=== PATIENT | female | born 1970 ===

== ENCOUNTER 2016-07-01 15:18 | Emergency (ER) | payer SELFPAY ==
[2016-07-01 15:18] VITALS: BMI 47.1
[2016-07-01 15:22] VITALS: BP 130/82; TEMP 98
--- NOTE | 2016-07-01 16:38 | C.PDOC ---
History Of Present Illness 46 y/o female with htn c/o left ear pain with itching x 2-3 days that got worse today, with pain radiating to side of face. no fevers or chills. no dental pain. no recent swimming., pt has not put anything into ears. c/o mild headache to left side of face. denies any discharge from left ear. pt took some tylenol with mild relief. Time Seen by Provider: 07/01/16 15:32 Chief Complaint (Nursing): ENT Problem Past Medical History Reviewed: Historical Data, Nursing Documentation, Vital Signs Vital Signs: Last Vital Signs Temp 98 F 07/01/16 15:21 Pulse 65 07/01/16 17:03 Resp 18 07/01/16 17:03 BP 130/82 07/01/16 15:21 Pulse Ox 98 07/01/16 17:03 - Medical History PMH: Gastritis, HTN, Migraine Denies: Chronic Kidney Disease Surgical History: Cholecystectomy - [facility] Procedures ENDOSC RETROGRADE CHOLANGIOPANCREATOGRAPHY [ERCP] (06/18/13) ENDOSCOP INSERTION OF STENT (TUBE) INTO BILE DUCT (06/18/13) ENDOSCOPIC REMOVAL OF STONE(S) FROM BILIARY TRACT (08/29/13) ENDOSCOPIC SPHINCTEROTOMY AND PAPILLOTOMY (08/29/13) INJECT/INFUSE NEC (06/04/14) INTRAOPER CHOLANGIOGRAM (06/30/13) LAPAROSCOPIC CHOLECYSTECTOMY (06/30/13) LOCAL EXCIS BREAST LES (04/09/14) OTHER ENDOSCOPY OF SM INTEST (08/29/13) OTHER LOCAL DESTRUC SKIN (10/14/13) PERCUTAN NEEDLE BIOPSY OF BREAST (11/20/13) REMOV BILIARY/LIVER TUBE (08/29/13) Family History: States: Unknown Family Hx - Social History Hx Tobacco Use: No Hx Alcohol Use: No Hx Substance Use: No - Immunization History Hx Tetanus Toxoid Vaccination: No Hx Influenza Vaccination: No Hx Pneumococcal Vaccination: No Review Of Systems Constitutional: Negative for: Fever, Chills Eyes: Negative for: Pain, Vision Change ENT: Positive for: Ear Pain. Negative for: Ear Discharge, Nose Pain, Nose Discharge, Mouth Pain, Throat Pain Respiratory: Negative for: Cough Gastrointestinal: Negative for: Nausea, Vomiting, Abdominal Pain Genitourinary: Negative for: Dysuria Musculoskeletal: Negative for: Neck Pain Skin: Negative for: Rash Physical Exam - Physical Exam Appears: Non-toxic, Other (appears uncomfortable) Skin: Normal Color, Warm, Dry Head: Atraumatic, Normacephalic Eye(s): bilateral: Normal Inspection Ear(s): Left: Other (tender to tragus. ecanal with erythema, no debris noted, tm intact- not erythematous, no mastoid tenderness), Right: Normal Nose: Normal Oral Mucosa: Moist ( ) Teeth: Normal Dentition Gingiva: Normal Appearing Neck: Normal ROM Cardiovascular: Rhythm Regular, No Murmur Respiratory: Normal Breath Sounds, No Rales, No Rhonchi, No Wheezing Gastrointestinal/Abdominal: Soft, No Tenderness ED Course And Treatment O2 Sat by Pulse Oximetry: 99 Medical Decision Making Medical Decision Makin46 y/o femal ewith left ear pain. erythematous canal on exam, will treat with analgesic and antibiotic ear drops with pmd f/u Disposition Counseled Patient/Family Regarding: Diagnosis, Need For Followup, Rx Given - Disposition Referrals: Valerie Perera MD [Staff Provider] - Disposition: HOME/ ROUTINE Disposition Time: 16:42 Condition: STABLE Additional Instructions: Use gotas para los odos segn lo prescrito. Osvaldo Tylenol o Motrin para el dolor. Seguimiento con el Dr. Perera en unos dejesus. Prescriptions: Neomycin/Polymyxin/Hydrocortis [Cortisporin Otic Susp] 4 drop QID #1 bottle Instructions: Otitis Externa (ED) Print Language: TONGAN - Clinical Impression Clinical Impression: Otitis externa
[2016-07-01 17:05] VITALS: PULSE 65; RESP 18
[2016-07-01 23:02] VITALS: O2SAT 99
== END 2016-07-01 17:04 | disposition home or self-care (01) ==
LOC: C.ER 15:18
DX: H60.92 Unspecified otitis externa, left ear (principal)

== ENCOUNTER 2016-07-17 01:39 | Emergency (ER) | payer SELFPAY ==
[2016-07-17 01:39] VITALS: BMI 47.1
--- NOTE | 2016-07-17 02:36 | C.PDOC ---
History Of Present Illness 46 y/o female presents to ED with complaint of digitally and positionally reproducible chest discomfort. Patient reports lifting small, heavy objects. Denies falls or truama. No SOB, nausea, arm pain, diaphoresis, or rash. Time Seen by Provider: 07/17/16 02:29 Chief Complaint (Nursing): Chest Pain History Per: Patient History/Exam Limitations: no limitations Onset/Duration Of Symptoms: Days Current Symptoms Are (Timing): Still Present Quality: "Pain" Associated Symptoms: denies: Dyspnea, Diaphoresis Exacerbating Factors: Movement Recent travel outside of the [place]: No Past Medical History Reviewed: Historical Data, Nursing Documentation, Vital Signs Vital Signs: Last Vital Signs Temp 98.1 F 07/17/16 03:00 Pulse 73 07/17/16 03:00 Resp 16 07/17/16 03:00 BP 122/74 07/17/16 03:00 Pulse Ox 96 07/17/16 03:00 - Medical History PMH: Gastritis, HTN, Migraine Surgical History: Cholecystectomy - [facility] Procedures ENDOSC RETROGRADE CHOLANGIOPANCREATOGRAPHY [ERCP] (06/18/13) ENDOSCOP INSERTION OF STENT (TUBE) INTO BILE DUCT (06/18/13) ENDOSCOPIC REMOVAL OF STONE(S) FROM BILIARY TRACT (08/29/13) ENDOSCOPIC SPHINCTEROTOMY AND PAPILLOTOMY (08/29/13) INJECT/INFUSE NEC (06/04/14) INTRAOPER CHOLANGIOGRAM (06/30/13) LAPAROSCOPIC CHOLECYSTECTOMY (06/30/13) LOCAL EXCIS BREAST LES (04/09/14) OTHER ENDOSCOPY OF SM INTEST (08/29/13) OTHER LOCAL DESTRUC SKIN (10/14/13) PERCUTAN NEEDLE BIOPSY OF BREAST (11/20/13) REMOV BILIARY/LIVER TUBE (08/29/13) Family History: States: Unknown Family Hx - Social History Hx Tobacco Use: No Hx Alcohol Use: No Hx Substance Use: No - Immunization History Hx Tetanus Toxoid Vaccination: No Hx Influenza Vaccination: No Hx Pneumococcal Vaccination: No Review Of Systems Except As Marked, All Systems Reviewed And Found Negative. Constitutional: Negative for: Fever, Chills Cardiovascular: Negative for: Palpitations Respiratory: Negative for: Cough, Shortness of Breath Gastrointestinal: Negative for: Nausea, Vomiting Musculoskeletal: Positive for: Other (chest wall pain ). Negative for: Arm Pain Skin: Negative for: Rash Physical Exam - Physical Exam Appears: Non-toxic, No Acute Distress, Other (mobridly obese ) Skin: Normal Color, Warm, Dry, No Rash Head: Atraumatic, Normacephalic Oral Mucosa: Moist Chest: Symmetrical, Tenderness (digitally reproducible upper sternal ) Cardiovascular: Rhythm Regular, No Murmur Respiratory: Normal Breath Sounds, No Rales, No Rhonchi, No Wheezing Gastrointestinal/Abdominal: Soft, No Tenderness Extremity: Normal ROM, Capillary Refill (< 2 sec. ) Neurological/Psych: Oriented x3, Normal Speech, Normal Cognition ED Course And Treatment ECG: Interpreted By Me ECG Rhythm: Sinus Rhythm ECG Interpretation: Normal Rate From EC O2 Sat by Pulse Oximetry: 98 Pulse Ox Interpretation: Normal Progress Note: Treated with Motrin. On reassessment, patient is resting comfortably, and is in no acute distress. Patient instructed to follow up with clinic/PMD within 1-2 days. Medical Decision Making Medical Decision Making: digitally and positionally reproducible upper sternal discomfort with normal EKG , c/w Costochondritis. Disposition Doctor Will See Patient In The: Office Counseled Patient/Family Regarding: Studies Performed, Diagnosis - Disposition Referrals: [facility] at [facility] [Outside] Disposition: HOME/ ROUTINE Disposition Time: 02:36 Condition: GOOD Additional Instructions: ibuprofeno 400-600 mg cada 6 horas, nada caliente [place] encima 1/2 hora por hora. No levanta nada pesada por 1 semana. Sigue en [facility]. Instructions: Costochondritis (ED) Print Language: ROMANSH - Clinical Impression Clinical Impression: Chest discomfort - Scribe Statement The provider has reviewed the documentation as recorded by the Kailashibluda Daniel Provider Scribe Attestation: All medical record entries made by the Scribe were at my direction and personally dictated by me. I have reviewed the chart and agree that the record accurately reflects my personal performance of the history, physical exam, medical decision making, and the department course for this patient. I have also personally directed, reviewed, and agree with the discharge instructions and disposition.
[2016-07-17 03:01] VITALS: BP 122/74; PULSE 73; RESP 16; TEMP 98.1
[2016-07-17 04:05] VITALS: O2SAT 98
== END 2016-07-17 03:03 | disposition home or self-care (01) ==
LOC: C.ER 01:39
DX: R07.89 Other chest pain (principal)

== ENCOUNTER 2016-08-14 09:41 | Day surgery (SDC) | payer SELFPAY ==
[2016-08-14 11:22] VITALS: BMI 47.0
[2016-08-14 11:51] VITALS: O2SAT 100
[2016-08-14 13:58] VITALS: TEMP 97.8
[2016-08-14 14:31] VITALS: BP 119/78; PULSE 60; RESP 14
== END 2016-08-14 14:15 | disposition home or self-care (01) ==
LOC: C.ENDO 09:41
PROVIDERS: ATTEND Internal Medicine Gastroenterology
DX: K22.70 Barrett's esophagus without dysplasia (principal); K21.0 Gastro-esophageal reflux disease with esophagitis; K29.50 Unspecified chronic gastritis without bleeding; K44.9 Diaphragmatic hernia without obstruction or gangrene

== ENCOUNTER 2016-10-05 08:25 | Inpatient (IN) | payer OTHER ==
[2016-10-02 08:15] VITALS: BMI 50.1
--- NOTE | 2016-10-05 10:29 | CP.PCM.HP ---
History of Present Illness - History of Present Illness History of Present Illness: 46yo female with a h/o fibroid uterus and menorhagia unresponsive to medical management, presenting here today for vaginal hysterectomy with anterior repair ith possible conversion to open hysterectomy. Present on Admission - Present on Admission Any Indicators Present on Admission: No Review of Systems - Reproductive: Female Reproductive:Female: Cycle Variable, Heavy Menses - Menstruation Menstruation: Heavy Menses Past Patient History - Infectious Disease Hx of Infectious Diseases: None - Tetanus Immunizations Tetanus Immunization: Unknown - Past Medical History & Family History Past Medical History?: Yes - Past Social History Smoking Status: Never Smoked - CARDIAC Hx Cardiac Disorders: Yes Hx Hypertension: Yes - PULMONARY Hx Respiratory Disorders: No - NEUROLOGICAL Hx Neurological Disorder: No Hx Migraine: Yes - HEENT Hx HEENT Problems: No - RENAL Hx Chronic Kidney Disease: No - ENDOCRINE/METABOLIC Hx Endocrine Disorders: No - HEMATOLOGICAL/ONCOLOGICAL Hx Blood Disorders: No - INTEGUMENTARY Hx Dermatological Problems: No - MUSCULOSKELETAL/RHEUMATOLOGICAL Hx Musculoskeletal Disorders: No - GASTROINTESTINAL Hx Gastrointestinal Disorders: Yes Hx Gastritis: Yes Hx Gastroesophageal Reflux: Yes Other/Comment: H/O BARRETTS ESOPHAGUS - GENITOURINARY/GYNECOLOGICAL Hx Genitourinary Disorders: No Hx Incontinence: Yes (STRESS) Hx Reproductive Disorders: Yes Other/Comment: UTERINE LEIOMYOMA - PSYCHIATRIC Hx Psychophysiologic Disorder: No Hx Substance Use: No - SURGICAL HISTORY Hx Surgeries: Yes Hx Cholecystectomy: Yes Hx Tubal Ligation: Yes Other/Comment: LIPOMA LEFT BREAST. LIPOMA HEAD - ANESTHESIA Hx Anesthesia: Yes Hx Anesthesia Reactions: No Hx Malignant Hyperthermia: No Has any member of the family had a problem w/ anesthesia?: (UNKNOWN) Meds Allergies/Adverse Reactions: Allergies Allergy/AdvReac Type Severity Reaction Status Date / Time No Known Allergies Allergy Verified 07/01/16 15:25 Physical Exam - Constitutional Appears: Well - Eye Exam Eye Exam: EOMI - ENT Exam ENT Exam: Normal Exam - Respiratory Exam Respiratory Exam: Clear to Auscultation Bilateral, NORMAL BREATHING PATTERN - Cardiovascular Exam Cardiovascular Exam: REGULAR RHYTHM - GI/Abdominal Exam GI & Abdominal Exam: Normal Bowel Sounds - Extremities Exam Extremities exam: Positive for: normal inspection Results - Vital Signs Recent Vital Signs: Last Vital Signs Temp 97.9 F 10/05/16 09:00 Pulse 64 10/05/16 09:00 Resp 18 10/05/16 09:00 BP 112/75 10/05/16 09:00 Pulse Ox 97 10/05/16 09:00 - Impressions Impression: Fibroid Uterus with Menorrhagia Assessment & Plan (1) Fibroid (bleeding) (uterine) Status: Acute (2) Menorrhagia Status: Acute (3) Stress incontinence in female Status: Acute - Assessment and Plan (Free Text) Plan: crew caller to the OR IV fluids Mefoxin 2gms 1 hr before incision Sequential compression devices. - Date & Time Date: 10/05/16 Time: 10:34
[2016-10-05] MEDS ORDERED: Midazolam 2 MG/2 ML VIAL ONE (10:41)
[2016-10-05] MEDS ORDERED: Propofol 10 mg/ml Inj (20 ML) ONE (10:41)
[2016-10-05] MEDS ORDERED: Lactated Ringer's 1,000 ML IV ONE ×6 (10:55→19:02)
[2016-10-05] MEDS ORDERED: Vasopressin 20 Units/ml Inj ONE (10:59)
[2016-10-05] MEDS: cefOXitin IV 2 gm in Dextrose 2 GM/50 ML BAG IVPB ONE ×2 (11:10→11:46)
[2016-10-05] MEDS ORDERED: Sodium Chloride 0.9% 120 ML IV ONE (11:18)
[2016-10-05] MEDS ORDERED: Succinylcholine Chloride 20 mg/ml Syr (5 ml) IV ONE (11:24)
[2016-10-05] MEDS ORDERED: Rocuronium 10 mg/ml (10 ml) ONE (11:24)
[2016-10-05] MEDS ORDERED: Clindamycin 2% Vaginal Cream(40 gm) ONE (12:02)
[2016-10-05] MEDS ORDERED: Neostigmine Methylsulfate 3mg/3ml Syringe IV ONE (12:52)
[2016-10-05] MEDS ORDERED: Methylene Blue 10 mg/mL(10ml) IV ONE (13:07)
[2016-10-05] MEDS ORDERED: Dextrose 5%/0.45% NS 1,000 ML IV SCH (13:45)
[2016-10-05] MEDS ORDERED: Oxycodone/Acetaminophen 5/325 mg Tab PO PRN ×3 (13:45→14:05)
--- NOTE | 2016-10-05 13:48 | PCM.SURG1 ---
Surgeon's Initial Post Op Note - Surgeon's Notes Surgeon: Dr Son Bakery Worker: Jolie Torres ( [facility] Resident ) Type of Anesthesia: General Endo Anesthesia Administered By: MOIRA Quispe supervised by Dr Sonia lundberg Pre-Operative Diagnosis: Fibroid Uterus with Menorrhagia Operative Findings: An [id number] multinodular fibroid uterus. The ovaries and fallopian tubes appeared normal. The vaginal vault appeared intact and normal. IVF intake -2500mls. EBL- 70mls. urine output- 100mls. Normal bladder mucosa , the ureteral orrifices were seen and exhibited output into the bladder. Post-Operative Diagnosis: Same as preop Diagnosis Operation Performed: Vaginal Hysterectomy. Cystoscopy Specimen/Specimens Removed: Uterus with cervix Estimated Blood Loss: EBL {In ML}: 70 Post-Op Condition: Good Date of Surgery/Procedure: 10/05/16 Time of Surgery/Procedure: 13:05
[2016-10-05] MEDS ORDERED: Lactated Ringer's 1,000 ML IV SCH (14:00)
[2016-10-05] MEDS: HYDROmorphone 0.5 mg/0.5 ml ISec IVP PRN ×2 (14:15→14:45)
[2016-10-05] MEDS ORDERED: Sodium Chloride 0.9% 500 ML IV ONE ×2 (15:30→15:43)
[2016-10-05] MEDS ORDERED: Sodium Chloride 0.9% 500 ML IV SCH (16:06)
[2016-10-05] MEDS: cefOXitin IV 2 gm in Dextrose 2 GM/50 ML BAG IVPB SCH (20:26)
[2016-10-05 20:27] LABS: ALBUMIN 3.4 g/dL (3.5-5.0)
[2016-10-05 20:30] LABS: ALB/GLOB RATIO 0.9 (1.0-2.1); GFR AFRICAN-AMERICAN > 60; GFR NON-AFRICAN AMERICAN > 60
[2016-10-05 20:31] LABS: ALT/SGPT 49 U/L (9-52); AST/SGOT 38 U/L (14-36); BLOOD UREA NITROGEN 13 mg/dL (7-17); CALCIUM 8.4 mg/dl (8.6-10.4)
[2016-10-05] MEDS: Pantoprazole 40 mg EC Tab PO SCH (21:11)
[2016-10-06] MEDS: cefOXitin IV 2 gm in Dextrose 2 GM/50 ML BAG IVPB SCH ×2 (03:10→10:08)
[2016-10-06 07:58] LABS: HEMOGLOBIN 10.8 g/dL (11.0-16.0); MEAN CELL VOLUME 86.6 fL (81.0-99.0); MEAN CORPUSCULAR HEMOGLOBIN 28.1 pg (27.0-31.0); MEAN CORPUSCULAR HGB CONC 32.5 g/dL (33.0-37.0); MEAN PLATELET VOLUME 9.3 fL (7.2-11.7); RBC 3.85 Mil/uL (3.80-5.20); RED CELL DISTRIBUTION WIDTH 13.7 % (11.5-14.5)
[2016-10-06 08:04] LABS: WHITE BLOOD COUNT 11.1 K/uL (4.8-10.8)
[2016-10-06 09:58] VITALS: RESP 18
[2016-10-06] MEDS ORDERED: Pantoprazole 40 mg EC Tab PO SCH (10:00)
[2016-10-06] MEDS: Pantoprazole 40 mg EC Tab PO SCH (10:08)
[2016-10-06] MEDS: Enoxaparin 40 mg Syringe SC SCH (14:50)
--- NOTE | 2016-10-06 17:33 | CP.PCM.PN ---
Subjective - Date & Time of Evaluation Date of Evaluation: 10/06/16 Time of Evaluation: 07:30 - Subjective Subjective: Patient seen and examined at bedside. Patient is doing well, pain is controlled. Per nursing no acute overnight events. Patient is not yet ambulating. Tolerating diet. Patient reports passing flatus but no BM. Stack in draining clear yellow urine Denies headache, dizziness, CP, SOB, abdominal pain , urinary symptoms. Objective - Vital Signs/Intake and Output Vital Signs (last 24 hours): Temp Pulse Resp BP Pulse Ox 101.3 F H 67 18 105/62 95 10/06/16 09:56 10/06/16 09:56 10/06/16 09:56 10/06/16 09:56 10/06/16 09:56 Intake and Output: 10/06/16 10/06/16 06:59 18:59 Intake Total 1090 Output Total 3100 350 Balance -3100 740 - Medications Medications: Current Medications Enoxaparin Sodium (Lovenox) 40 mg SC DAILY [facility] Last Admin: 10/06/16 14:50 Dose: 40 mg Lactated Ringer's (Lactated Ringer's) 1,000 mls @ 125 mls/hr IV .Q8H [facility] Last Admin: 10/06/16 06:19 Dose: 125 mls/hr Ibuprofen (Motrin Tab) 600 mg PO TID [facility] Last Admin: 10/06/16 10:04 Dose: Not Given Oxycodone/Acetaminophen (Percocet 5/325 Mg Tab) 2 tab PO Q4H PRN PRN Reason: Pain, severe (8-10) Stop: 10/08/16 14:03 Last Admin: 10/05/16 17:32 Dose: 2 tab Pantoprazole Sodium (Protonix Ec Tab) 40 mg PO DAILY [facility] Last Admin: 10/06/16 10:08 Dose: 40 mg - Labs Labs: 10/06/16 07:21 10/05/16 20:08 - Constitutional Appears: Well, No Acute Distress - Head Exam Head Exam: ATRAUMATIC, NORMAL INSPECTION - Eye Exam Eye Exam: EOMI, Normal appearance Pupil Exam: NORMAL ACCOMODATION - ENT Exam ENT Exam: Mucous Membranes Moist - Neck Exam Neck Exam: Full ROM - Respiratory Exam Respiratory Exam: Clear to Ausculation Bilateral, NORMAL BREATHING PATTERN - Cardiovascular Exam Cardiovascular Exam: REGULAR RHYTHM, +S1, +S2 - GI/Abdominal Exam GI & Abdominal Exam: Soft, Hypoactive Bowel Sounds. absent: Tenderness - Extremities Exam Extremities Exam: Normal Inspection - Back Exam Back Exam: NORMAL INSPECTION - Neurological Exam Neurological Exam: Alert, Awake, Oriented x3 - Skin Skin Exam: Normal Color, Warm Assessment and Plan (1) Fibroid (bleeding) (uterine) Status: Acute - Assessment and Plan (Free Text) Assessment: 46 yo female s/p Vaginal hysterectomy POD#1 1. Stable, Tmax 101.3 this morning 2. Continue pain control 3. F/U am CBC 4. Remove vaginal packing this am 5. Remove stack, f/u voiding trial 6. Advance diet as tolerated 7. Encourage ambulation once stack is removed 8. Will continue to monitor 9. Anticipate discharge home tomorrow 10. Plan discussed with attending
--- NOTE | 2016-10-06 20:56 | OP ---
PREOPERATIVE DIAGNOSIS: A 46-year-old female with fibroid uterus and menorrhagia. POSTOPERATIVE DIAGNOSIS: A 46-year-old female with fibroid uterus and menorrhagia. PROCEDURE DONE: Total vaginal hysterectomy with left salpingectomy, performed on 09/05/2016, around 1 p.m. SURGEON: Dr. Son. SHIP FITTER: Dr. Tuttle and Dr. Jolie Gonzalez, [facility] resident. Assistance to this procedure was needed for for conduct of the procedure. The assistants remained with the surgery throughout its entire length. TYPE OF ANESTHESIA: General endotracheal. ANESTHESIA ADMINISTERED BY: Jeri PIZARRO, supervised by Dr. Fox. FINDINGS: Anteverted 11 x 7 x 6 cm multinodular fibroid uterus. The ovaries and fallopian tubes were visualized and appeared normal. The vaginal vault appeared intact and there was not any evidence of vault prolapse. IV FLUID INTAKE: 2500 mL. ESTIMATED BLOOD LOSS: About 70 mL. URINE OUTPUT: About 100 mL of clear urine. DESCRIPTION OF PROCEDURE: The patient was taken to the operating room and satisfactory general anesthesia was obtained. The patient was prepped and draped in the usual sterile fashion and was placed in the dorsal lithotomy position. A weighted speculum was placed in the posterior vaginal wall and a right angle retractor was used to visualize the cervix. The cervix was grasped across anteriorly with single-tooth tenaculum and was circumferentially infiltrated with 20 units of Pitressin in 50 mL of normal saline. The vaginal mucosa was dissected superiorly with sharp dissection. The anterior peritoneal reflection was identified and it was entered with Metzenbaum scissors. Posterior colpotomy was made through the cul-de-sac space. Posterior peritoneum was also identified in a similar fashion and Metzenbaum scissors were used to enter the cul-de-sac. At this time, a weighted speculum was placed and advanced posteriorly into the cul-de-sac. At this time, the left and right uterosacral ligaments were isolated and ligated with #0 Vicryl. A LigaSure device was then used in a serial fashion up through the cardinal ligaments bilaterally. Finally, the uterine arteries were clamped, cauterized, and transected using the LigaSure device. The LigaSure device was then used up through the broad ligaments superiorly and finally the uterus was rotated posteriorly. The left and right tubes and attachment to the cornua of the uterus were identified. They were clamped with the LigaSure device bilaterally, cauterized, and transected on both sides to deliver the uterus. At this time, the instruments were removed from the patient's abdominopelvic cavity. Vaginal cuff closure and peritoneum were incorporated into one layer with #0 Vicryl suture in a continuous running, interlocking fashion. Hemostasis was noted to be achieved. A vaginal packing was put in the vagina to provide support. A cystoscope was introduced into the bladder. The bladder ridges were identified and ureteral openings into the bladder were identified after giving methylene blue. Flow through both orifices was identified with cystoscopy. Once the procedure was completed, the patient was placed back into the supine position and was sent back to the recovery room in a stable condition. Sponge and needle counts were correct x3. MD TROY Mcfadden
[2016-10-07] MEDS: Enoxaparin 40 mg Syringe SC SCH (09:39)
[2016-10-07] MEDS: Pantoprazole 40 mg EC Tab PO SCH (09:39)
--- NOTE | 2016-10-07 12:02 | CP.PCM.PN ---
Subjective - Date & Time of Evaluation Date of Evaluation: 10/07/16 Time of Evaluation: 12:00 - Subjective Subjective: pt was seen at bed side, pain under control, no n/v, tolerating deit,voidin,no vb, flatuas+ abd soft,mild ten ext mild edema,no calf ten Objective - Vital Signs/Intake and Output Vital Signs (last 24 hours): Temp Pulse Resp BP Pulse Ox 99.2 F 72 18 101/62 98 10/07/16 10:55 10/07/16 10:55 10/07/16 10:55 10/07/16 10:55 10/07/16 10:55 Intake and Output: 10/07/16 10/07/16 06:59 18:59 Intake Total 1500 Output Total 900 Balance 600 - Medications Medications: Current Medications Enoxaparin Sodium (Lovenox) 40 mg SC DAILY [facility] Last Admin: 10/07/16 09:39 Dose: 40 mg Lactated Ringer's (Lactated Ringer's) 1,000 mls @ 125 mls/hr IV .Q8H [facility] Last Admin: 10/06/16 06:19 Dose: 125 mls/hr Ibuprofen (Motrin Tab) 600 mg PO TID [facility] Last Admin: 10/06/16 18:49 Dose: Not Given Lisinopril (Zestril) 20 mg PO DAILY [facility] Last Admin: 10/07/16 09:44 Dose: 20 mg Oxycodone/Acetaminophen (Percocet 5/325 Mg Tab) 2 tab PO Q4H PRN PRN Reason: Pain, severe (8-10) Stop: 10/08/16 14:03 Last Admin: 10/05/16 17:32 Dose: 2 tab Pantoprazole Sodium (Protonix Ec Tab) 40 mg PO DAILY [facility] Last Admin: 10/07/16 09:39 Dose: 40 mg - Labs Labs: 10/06/16 07:21 10/05/16 20:08 Assessment and Plan - Assessment and Plan (Free Text) Assessment: pod#2 s/p vaginal hystrectomy Plan: plan dc home no sex percocet, prn f/u Dr Son in 1-2 weeks if any fever call pmd
[2016-10-07 12:21] VITALS: BP 101/62; TEMP 99.2
[2016-10-07 12:53] VITALS: PULSE 72; O2SAT 98
--- NOTE | 2016-10-07 16:46 | CP.PCM.DIS ---
Provider - Provider Date of Admission: 10/05/16 13:45 Attending physician: Thai Son Time Spent in preparation of Discharge (in minutes): 30 Diagnosis - Discharge Diagnosis (1) Fibroid (bleeding) (uterine) Status: Acute (2) Menorrhagia Status: Acute (3) Stress incontinence in female Status: Acute Hospital Course - Lab Results Lab Results: Most Recent Lab Values WBC 11.1 K/uL (4.8-10.8) H D 10/06/16 07:21 RBC 3.85 Mil/uL (3.80-5.20) 10/06/16 07:21 Hgb 10.8 g/dL (11.0-16.0) L 10/06/16 07:21 Hct 33.3 % (34.0-47.0) L 10/06/16 07:21 MCV 86.6 fL (81.0-99.0) 10/06/16 07:21 MCH 28.1 pg (27.0-31.0) 10/06/16 07:21 MCHC 32.5 g/dL (33.0-37.0) L 10/06/16 07:21 RDW 13.7 % (11.5-14.5) 10/06/16 07:21 Plt Count 176 K/uL (130-400) 10/06/16 07:21 MPV 9.3 fL (7.2-11.7) 10/06/16 07:21 Sodium 135 mmol/L (132-148) 10/05/16 20:08 Potassium 3.8 mmol/L (3.6-5.2) 10/05/16 20:08 Chloride 102 mmol/L (98-107) 10/05/16 20:08 Carbon Dioxide 23 mmol/L (22-30) 10/05/16 20:08 Anion Gap 15 (10-20) 10/05/16 20:08 BUN 13 mg/dL (7-17) 10/05/16 20:08 Creatinine 0.5 MG/DL (0.7-1.2) L 10/05/16 20:08 Est GFR ( Amer) > 60 10/05/16 20:08 Est GFR (Non-Af Amer) > 60 10/05/16 20:08 Random Glucose 116 mg/dL (65-105) H 10/05/16 20:08 Calcium 8.4 mg/dl (8.6-10.4) L 10/05/16 20:08 Total Bilirubin 0.5 mg/dL (0.2-1.3) 10/05/16 20:08 AST 38 U/L (14-36) H D 10/05/16 20:08 ALT 49 U/L (9-52) 10/05/16 20:08 Alkaline Phosphatase 71 U/L (38-126) 10/05/16 20:08 Total Protein 7.0 g/dL (6.3-8.3) 10/05/16 20:08 Albumin 3.4 g/dL (3.5-5.0) L 10/05/16 20:08 Globulin 3.7 gm/dL (2.2-3.9) 10/05/16 20:08 Albumin/Globulin Ratio 0.9 (1.0-2.1) L 10/05/16 20:08 Blood Type O POSITIVE 10/05/16 09:48 Antibody Screen Negative 10/05/16 09:48 - Hospital Course Hospital Course: Pt is 46yo s/p Vaginal hysterectomy, POD #2 clinically Stable. Pt would be sent home with regular diet and regular activity. Pt to f/u with Dr Son in 2 weeks. Discharge Exam - Head Exam Head Exam: ATRAUMATIC, NORMAL INSPECTION - Eye Exam Eye Exam: EOMI, Normal appearance Pupil Exam: PERRL - Respiratory Exam Respiratory Exam: Clear to PA & Lateral, NORMAL BREATHING PATTERN - Cardiovascular Exam Cardiovascular Exam: REGULAR RHYTHM, RRR - GI/Abdominal Exam GI & Abdominal Exam: Normal Bowel Sounds - Exam External exam: NORMAL EXTERNAL EXAM - Neurological Exam Neurological exam: Alert, Oriented x3 Discharge Plan - Discharge Medications Prescriptions: oxyCODONE/Acetaminophen [Percocet 5/325 mg Tab] 1 ea PO Q6 #20 tab - Follow Up Plan Condition: GOOD Disposition: HOME/ ROUTINE Instructions: Vaginal Hysterectomy (DC), Cystoscopy (DC) Additional Instructions: take meds as ordered, drink plenty of fluids, eat healthy, increase ambulation, notify md for fever, bleeding, severe pain, call for follow-up visit Clinical Quality Measures - Date & Time of Discharge Summary Date of Discharge Summary: 10/07/16 Time of Discharge Summary: 16:49
== END 2016-10-07 13:40 | disposition home or self-care (01) | DRG 359 ==
LOC: C.SDS 08:25 → C.9S 13:45 → C.4M 14:14
PROVIDERS: ADMIT Obstetrics & Gynecology; ATTEND Obstetrics & Gynecology
PROC: 0UT67ZZ Resection of Left Fallopian Tube, Via Natural or Artificial Opening (ICD-10-PCS; 2016-10-05)
PROC: 0UTC7ZZ Resection of Cervix, Via Natural or Artificial Opening (ICD-10-PCS; 2016-10-05)
PROC: 0UT97ZZ Resection of Uterus, Via Natural or Artificial Opening (ICD-10-PCS; principal; 2016-10-05 10:30)
DX: D25.2 Subserosal leiomyoma of uterus (principal); N80.0 Endometriosis of uterus; N92.0 Excessive and frequent menstruation with regular cycle; N39.3 Stress incontinence (female) (male); I10 Essential (primary) hypertension; K21.9 Gastro-esophageal reflux disease without esophagitis; Z90.49 Acquired absence of other specified parts of digestive tract; Z98.51 Tubal ligation status

== ENCOUNTER 2017-09-09 10:37 | Emergency (ER) | payer SELFPAY ==
[2017-09-09 10:38] VITALS: BMI 29.4
[2017-09-09 10:50] VITALS: BP 142/99; PULSE 63; RESP 20; TEMP 98.6; O2SAT 100
[2017-09-09] MEDS ORDERED: Naproxen 550 mg Tab PO STA (11:16)
--- NOTE | 2017-09-09 11:19 | C.PDOC ---
History Of Present Illness 47 yo female c/o scratch to her buttock that she noticed on Sunday. PT is unware how it go there. Notes that she did not itch it. NO rectal pain or itching, no change in BM, no rash, or discharge. No ecchymosis or other unknown lesions. No trauma. Pt also c/o right knee pain intermittently for 2 years. PT notes she has h/o XR showing "tendon inflammation." Pain aggravated by bending and ambulation. PT notes when she is in pain she takes motrin or tylenol. Did not take anything today. No trauma, change in sensation, change in color, swelling, lower leg swelling or pain. No new symptoms. Time Seen by Provider: 09/09/17 11:07 Chief Complaint (Nursing): Lower Extremity Problem/Injury History Per: Patient, Family (son translated) History/Exam Limitations: no limitations Onset/Duration Of Symptoms: Days Past Medical History Vital Signs: Last Vital Signs Temp 98.6 F 09/09/17 10:42 Pulse 63 09/09/17 10:42 Resp 20 09/09/17 10:42 BP 142/99 H 09/09/17 10:42 Pulse Ox 100 09/09/17 11:19 - Medical History PMH: Gastritis, HTN, Migraine Denies: Chronic Kidney Disease Surgical History: Cholecystectomy, Endoscopy - [facility] Procedures ENDOSC RETROGRADE CHOLANGIOPANCREATOGRAPHY [ERCP] (06/18/13) ENDOSCOP INSERTION OF STENT (TUBE) INTO BILE DUCT (06/18/13) ENDOSCOPIC REMOVAL OF STONE(S) FROM BILIARY TRACT (08/29/13) ENDOSCOPIC SPHINCTEROTOMY AND PAPILLOTOMY (08/29/13) INJECT/INFUSE NEC (06/04/14) INTRAOPER CHOLANGIOGRAM (06/30/13) LAPAROSCOPIC CHOLECYSTECTOMY (06/30/13) LOCAL EXCIS BREAST LES (04/09/14) OTHER ENDOSCOPY OF SM INTEST (08/29/13) OTHER LOCAL DESTRUC SKIN (10/14/13) PERCUTAN NEEDLE BIOPSY OF BREAST (11/20/13) REMOV BILIARY/LIVER TUBE (08/29/13) RESECTION OF CERVIX, VIA NATURAL OR ARTIFICIAL OPENING (10/05/16) RESECTION OF LEFT FALLOPIAN TUBE, VIA OPENING (10/05/16) RESECTION OF UTERUS, VIA NATURAL OR ARTIFICIAL OPENING (10/05/16) Family History: States: Unknown Family Hx - Social History Hx Tobacco Use: No Hx Alcohol Use: No Hx Substance Use: No - Immunization History Hx Tetanus Toxoid Vaccination: No Hx Influenza Vaccination: No Hx Pneumococcal Vaccination: No Review Of Systems Except As Marked, All Systems Reviewed And Found Negative. Physical Exam - Physical Exam Appears: Well, No Acute Distress Skin: Warm, Dry, Other (superficial healing upside down U shape abrasion extending on b/l buttocks. ) Head: Atraumatic, Normacephalic Eye(s): bilateral: Normal Inspection, PERRL, EOMI Nose: Normal Oral Mucosa: Moist Neck: Normal, Normal ROM, Supple Chest: Symmetrical Cardiovascular: Rhythm Regular Respiratory: Normal Breath Sounds Gastrointestinal/Abdominal: Normal Exam, Soft, Other (obese) Back: Normal Inspection Extremity: Normal ROM, Tenderness (TTP diffusely with pain aggravated with bending), No Calf Tenderness, Capillary Refill (<2 sec), No Swelling Extremity: Bilateral: Atraumatic, Normal Color And Temperature, Normal ROM Pulses: Left Dorsalis Pedis: Normal, Right Dorsalis Pedis: Normal Neurological/Psych: Oriented x3, Normal Speech, Normal Motor, Normal Sensation Gait: Steady ED Course And Treatment O2 Sat by Pulse Oximetry: 100 Progress Note: Pt has healing superfial abrasion to the buttock which appears secondary to sitting on something . DIscussed signs of concern and wound care. PT has chronic knee pain with no change in symtpoms or trauma. NO signs of infection. No lower leg swelling or pain. Instructed to RICE and follow up with orthopedic in 1-2 days. Disposition - Disposition Referrals: Pdero Green III, MD [Staff Provider] - Disposition: HOME/ ROUTINE Disposition Time: 11:16 Condition: STABLE Additional Instructions: Follow up with orthopedist in 1-2 days. Return to ER is symptoms persist or worsen. Seguimiento con ortopedista en 1-2 dejesus. Volver a er los sntomas persisten o empeoran. Prescriptions: Naproxen [Naprosyn] 1 tab PO BID PRN #20 tab PRN Reason: Pain Instructions: Chronic Knee Pain (DC) Forms: [facility] (Wolof) Print Language: DIVEHI - Clinical Impression Clinical Impression: Abrasion, Chronic knee pain
[2017-09-09] MEDS ORDERED: Naproxen 550 mg Tab PO ONE (11:28)
== END 2017-09-09 11:30 | disposition home or self-care (01) ==
LOC: C.ER 10:37
DX: G89.29 Other chronic pain (principal); M25.561 Pain in right knee; S30.810A Abrasion of lower back and pelvis, initial encounter; X58.XXXA Exposure to other specified factors, initial encounter; I10 Essential (primary) hypertension

== ENCOUNTER 2018-04-06 12:10 | Emergency (ER) | payer SELFPAY ==
[2018-04-06 12:10] VITALS: BMI 29.4
--- NOTE | 2018-04-06 12:29 | C.PDOC ---
History Of Present Illness 48 y/o female pt presents to the ER c/o flu-like sx. Associated sx includes cough, congestion and sore throat for a few days. Pt denies vomiting, diarrhea and abdominal pain. Time Seen by Provider: 04/06/18 12:20 Chief Complaint (Nursing): Flu-like Symptoms History Per: Patient History/Exam Limitations: no limitations Onset/Duration Of Symptoms: Days Current Symptoms Are (Timing): Still Present Associated Symptoms: Sore Throat, Cough, Other (congestion) Past Medical History Reviewed: Historical Data, Nursing Documentation, Vital Signs Vital Signs: Last Vital Signs Temp 100.1 F H 04/06/18 12:13 Pulse 84 04/06/18 12:13 Resp 20 04/06/18 12:13 BP 116/81 04/06/18 12:13 Pulse Ox 98 04/06/18 12:13 - Medical History PMH: Asthma, Gastritis, HTN, Migraine Surgical History: Cholecystectomy, Endoscopy - [facility] Procedures ENDOSC RETROGRADE CHOLANGIOPANCREATOGRAPHY [ERCP] (06/18/13) ENDOSCOP INSERTION OF STENT (TUBE) INTO BILE DUCT (06/18/13) ENDOSCOPIC REMOVAL OF STONE(S) FROM BILIARY TRACT (08/29/13) ENDOSCOPIC SPHINCTEROTOMY AND PAPILLOTOMY (08/29/13) INJECT/INFUSE NEC (06/04/14) INTRAOPER CHOLANGIOGRAM (06/30/13) LAPAROSCOPIC CHOLECYSTECTOMY (06/30/13) LOCAL EXCIS BREAST LES (04/09/14) OTHER ENDOSCOPY OF SM INTEST (08/29/13) OTHER LOCAL DESTRUC SKIN (10/14/13) PERCUTAN NEEDLE BIOPSY OF BREAST (11/20/13) REMOV BILIARY/LIVER TUBE (08/29/13) RESECTION OF CERVIX, VIA NATURAL OR ARTIFICIAL OPENING (10/05/16) RESECTION OF LEFT FALLOPIAN TUBE, VIA OPENING (10/05/16) RESECTION OF UTERUS, VIA NATURAL OR ARTIFICIAL OPENING (10/05/16) Family History: States: Unknown Family Hx - Social History Hx Tobacco Use: No Hx Alcohol Use: No Hx Substance Use: No - Immunization History Hx Tetanus Toxoid Vaccination: No Hx Influenza Vaccination: No Hx Pneumococcal Vaccination: No Review Of Systems Except As Marked, All Systems Reviewed And Found Negative. ENT: Positive for: Throat Pain Cardiovascular: Positive for: Other (congestion ) Respiratory: Positive for: Cough Gastrointestinal: Negative for: Vomiting, Abdominal Pain, Diarrhea Physical Exam - Physical Exam Appears: Non-toxic, No Acute Distress Skin: Warm, Dry Head: Normacephalic Eye(s): bilateral: Normal Inspection, PERRL, EOMI Ear(s): Bilateral: Normal Nose: Other (congestion) Oral Mucosa: Moist Throat: Erythema, No Exudate Chest: Symmetrical, No Deformity Cardiovascular: Rhythm Regular Respiratory: Normal Breath Sounds, No Decreased Breath Sounds, No Rales, Rhonchi (scattered b/l), No Wheezing Gastrointestinal/Abdominal: Soft, No Tenderness Extremity: Normal ROM (x4) Neurological/Psych: Oriented x3, Normal Speech ED Course And Treatment O2 Sat by Pulse Oximetry: 98 (RA) Pulse Ox Interpretation: Normal - Other Rad Chest X-Ray: Interpreted by Me, Viewed By Me Interpretation: questionable infiltrated right lower lobe. left normal Medical Decision Making Medical Decision Making: Plans: -- POC urine -- CXR Disposition Doctor Will See Patient In The: ED - Disposition Referrals: Valerie Perera MD [Staff Provider] - Disposition: HOME/ ROUTINE Disposition Time: 12:48 Condition: STABLE Prescriptions: Albuterol HFA [Ventolin HFA 90 mcg/actuation (8 g)] 2 puff IH TID 6 Days #1 inhaler Azithromycin [Zithromax] 250 mg PO DAILY #6 tab Guaifenesin [Mucinex] 600 mg PO BID #10 tab.er.12h Instructions: Pneumonia in Adults Forms: Gen Discharge Inst Yoruba, General Discharge Instructions, [facility] (Bolivian), Work Excuse - POA Present On Arrival: None - Clinical Impression Clinical Impression: Influenza-like illness, Pneumonia - Scribe Statement The provider has reviewed the documentation as recorded by the Puneet Hector Do Provider Attestation: All medical record entries made by the Scribe were at my direction and personally dictated by me. I have reviewed the chart and agree that the record accurately reflects my personal performance of the history, physical exam, medical decision making, and the department course for this patient. I have also personally directed, reviewed, and agree with the discharge instructions and disposition.
[2018-04-06 13:12] VITALS: BP 106/70; PULSE 72; RESP 18; TEMP 99.9; O2SAT 96
--- NOTE | 2018-04-06 14:27 | RAD ---
Date of service: 04/06/2018 HISTORY: Cough COMPARISON: No prior. TECHNIQUE: Chest PA and lateral FINDINGS: LINES AND TUBES: None. LUNG AND PLEURA: The lungs are well inflated and clear. No pleural effusion or pneumothorax. HEART AND MEDIASTINUM: The heart is not enlarged. No aortic atherosclerotic calcifications present. The hilar and mediastinal contours are within normal limits. SKELETAL STRUCTURES: The bony structures are within normal limits for the patient's age. VISUALIZED UPPER ABDOMEN: Normal. OTHER FINDINGS: None. IMPRESSION: No active pulmonary disease.
== END 2018-04-06 13:17 | disposition home or self-care (01) ==
LOC: C.ER 12:10
DX: J11.00 Influenza due to unidentified influenza virus with unspecified type of pneumonia (principal)
CPT/HCPCS: 71046; 81025; 96372; 99283; J2930

== ENCOUNTER 2018-04-10 12:12 | Outpatient (CLI) | payer SELFPAY | END 2018-04-10 12:13 | disposition home or self-care (01) | LOC: C.USIC 12:13 ==

== ENCOUNTER 2018-07-16 18:18 | Emergency (ER) | payer OTHER, SELFPAY | END 2018-07-16 20:58 | disposition home or self-care (01) | LOC: C.ER 18:18 ==